=== PATIENT | female | born 1985 | race Caucasian/White ===

== ENCOUNTER 2017-04-28 21:05 | Emergency (ER) | payer OTHER ==
--- NOTE | 2017-04-28 21:10 | UC ---
Back Pain HPI - HPI Summary HPI Summary: 31 year old female presents with complains of left sided upper back spasm. - History of Current Complaint Stated Complaint: BACK PAIN Time Seen by Provider: 04/28/17 21:10 Hx Last Menstrual Period: depo shot - Allergies/Home Medications Allergies/Adverse Reactions: Allergies Allergy/AdvReac Type Severity Reaction Status Date / Time Amoxicillin Allergy Rash Verified 04/28/17 21:17 Meperidine [From Demerol HCl] Allergy Rash And Verified 04/28/17 21:17 Itching Penicillins Allergy Unknown Verified 04/28/17 21:17 Reaction Details Tramadol Allergy Swelling Verified 04/28/17 21:17 Of Face,Lips,& Throat PMH/Surg Hx/FS Hx/Imm Hx Other History Of: Negative For: HIV, Hepatitis B, Hepatitis C, Anticoagulant Therapy - Surgical History Surgical History: Yes Surgery Procedure, Year, and Place: C-Sections, 2003 2007, [place] - Family History Known Family History: Positive: None, Hypertension Negative: Cardiac Disease - Social History Alcohol Use: None Substance Use Type: None Smoking Status (MU): Never Smoked Tobacco - Immunization History Most Recent Influenza Vaccination: Not the 2015/2016 Season Review of Systems Constitutional: Negative Skin: Negative Eyes: Negative ENT: Negative Respiratory: Negative Cardiovascular: Negative Gastrointestinal: Negative Genitourinary: Negative Motor: Negative Neurovascular: Negative Musculoskeletal: Myalgia, Other: - left upper back spasm Neurological: Negative Psychological: Negative All Other Systems Reviewed And Are Negative: Yes Physical Exam Triage Information Reviewed: Yes Eye Exam: Normal ENT Exam: Normal Dental Exam: Normal Neck exam: Normal Neck: Positive: 1 Respiratory Exam: Normal Cardiovascular Exam: Normal Abdominal Exam: Normal Musculoskeletal Exam: Normal Musculoskeletal: Positive: Other: - left upper back spasm Neurological Exam: Normal Psychological Exam: Normal Skin Exam: Normal Back Pain Course/Dx - Differential Dx/Diagnosis Provider Diagnoses: left upper back spasm. scapular dyskinesia Discharge - Discharge Plan Condition: Stable Disposition: HOME Prescriptions: Diclofenac 1% GEL (NF) [Voltaren 1% GEL (NF)] 2 gm TOPICAL BID PRN #1 tube PRN Reason: Spasms - Back Meloxicam [Mobic] 7.5 mg PO BID WITH MEALS #30 tab Methocarbamol TAB* [Robaxin 500 MG TAB*] 500 mg PO TID PRN #30 tab PRN Reason: Spasms - Back Patient Education Materials: Muscle Spasm (ED), Back Pain (ED) Referrals: Jaclyn Bui PA [Primary Care Provider] - If Needed
[2017-04-28 21:17] VITALS: BP 124/80
[2017-04-28] MEDS ORDERED: Naproxen TAB* 250 MG PO ONE (21:31)
== END 2017-04-28 21:39 | disposition home or self-care (01) ==
LOC: UCCORT 21:05
DX: M62.830 Muscle spasm of back (principal); M89.8X1 Other specified disorders of bone, shoulder; Z88.1 Allergy status to other antibiotic agents; Z88.5 Allergy status to narcotic agent; Z88.0 Allergy status to penicillin
CPT/HCPCS: 99212; A9270-GY; G0463

== ENCOUNTER 2017-05-05 09:06 | Emergency (ER) | payer OTHER ==
--- NOTE | 2017-05-05 09:30 | UC ---
Throat Pain/Nasal Maxi HPI - HPI Summary HPI Summary: 31 YEAR OLD FEMALE PRESENTS WITH COMPLAINS OF SORE THROAT. - History of Current Complaint Stated Complaint: SORE THROAT Hx Last Menstrual Period: depo shot - Allergies/Home Medications Allergies/Adverse Reactions: Allergies Allergy/AdvReac Type Severity Reaction Status Date / Time Amoxicillin Allergy Rash Verified 05/05/17 09:40 Meperidine [From Demerol HCl] Allergy Rash And Verified 05/05/17 09:40 Itching Penicillins Allergy Unknown Verified 05/05/17 09:40 Reaction Details Tramadol Allergy Swelling Verified 05/05/17 09:40 Of Face,Lips,& Throat PMH/Surg Hx/FS Hx/Imm Hx Previously Healthy: Yes Other History Of: Negative For: HIV, Hepatitis B, Hepatitis C, Anticoagulant Therapy - Surgical History Surgical History: Yes Surgery Procedure, Year, and Place: C-Sections, 2003 2007, [place] - Family History Known Family History: Positive: None, Hypertension Negative: Cardiac Disease - Social History Alcohol Use: None Substance Use Type: None Smoking Status (MU): Never Smoked Tobacco - Immunization History Most Recent Influenza Vaccination: Not the 2015/2016 Season Review of Systems Constitutional: Negative Skin: Negative Eyes: Negative ENT: Sore Throat, Nasal Discharge, Sinus Congestion Respiratory: Negative Cardiovascular: Negative Gastrointestinal: Negative Genitourinary: Negative Motor: Negative Neurovascular: Negative Musculoskeletal: Negative Neurological: Negative Psychological: Negative All Other Systems Reviewed And Are Negative: Yes Physical Exam Triage Information Reviewed: Yes Eye Exam: Normal ENT: Positive: Pharyngeal erythema, Nasal congestion, Nasal drainage, Tonsillar swelling Dental Exam: Normal Neck exam: Normal Neck: Positive: 1 Respiratory Exam: Normal Cardiovascular Exam: Normal Abdominal Exam: Normal Musculoskeletal Exam: Normal Neurological Exam: Normal Psychological Exam: Normal Skin Exam: Normal Throat Pain/Nasal Course/Dx - Differential Dx/Diagnosis Provider Diagnoses: STREP THROAT. PHARYNGITIS Discharge - Discharge Plan Condition: Stable Disposition: HOME Prescriptions: Azithromyxin JAMIE (NF) [Z-Jamie (Zithromax) 250 mg tabs #6] 2 tab PO .TODAY, THEN 1 DAILY #6 tab Magic M W2 Grayson/Maal/Nyst/Lido* 15 ml SWISH SPIT QID #120 ml Patient Education Materials: Sore Throat in Children (ED) Referrals: Jaclyn Bui PA [Primary Care Provider] - If Needed
[2017-05-05 09:48] VITALS: BP 115/68
== END 2017-05-05 10:14 | disposition home or self-care (01) ==
LOC: UCCORT 09:06
DX: J02.0 Streptococcal pharyngitis (principal); Z88.1 Allergy status to other antibiotic agents; Z88.5 Allergy status to narcotic agent; Z88.0 Allergy status to penicillin
CPT/HCPCS: 87651; 99212; G0463

== ENCOUNTER 2017-05-21 12:50 | Emergency (ER) | payer OTHER ==
--- NOTE | 2017-05-21 13:02 | UC ---
Throat Pain/Nasal Maxi HPI - HPI Summary HPI Summary: 31 YEAR OLD FEMALE PRESENTS WITH SORE THROAT AND HEADACHE. ON A SIDE NOTE SHE WAS EXPOSED TO STREP. - History of Current Complaint Stated Complaint: HEADACHE,THROAT Time Seen by Provider: 05/21/17 13:02 Hx Obtained From: Patient Hx Last Menstrual Period: depo shot Onset/Duration: Sudden Onset Severity: Moderate Pain Scale Used: 0-10 Numeric - 5 Associated Signs & Symptoms: Positive: Dysphagia Related History: Seasonal Allergies - Allergies/Home Medications Allergies/Adverse Reactions: Allergies Allergy/AdvReac Type Severity Reaction Status Date / Time Amoxicillin Allergy Rash Verified 05/21/17 13:01 Meperidine [From Demerol HCl] Allergy Rash And Verified 05/21/17 13:01 Itching Penicillins Allergy Unknown Verified 05/21/17 13:01 Reaction Details Tramadol Allergy Swelling Verified 05/21/17 13:01 Of Face,Lips,& Throat Home Medications: Home Medications Acetaminophen TAB* [Tylenol TAB*] 650 mg PO Q4H PRN 05/21/17 [History Confirmed 05/21/17] PMH/Surg Hx/FS Hx/Imm Hx Previously Healthy: Yes Other History Of: Negative For: HIV, Hepatitis B, Hepatitis C, Anticoagulant Therapy - Surgical History Surgical History: Yes Surgery Procedure, Year, and Place: C-Sections, 2003 2007, [place] - Family History Known Family History: Positive: None, Hypertension Negative: Cardiac Disease - Social History Alcohol Use: None Substance Use Type: None Smoking Status (MU): Never Smoked Tobacco - Immunization History Most Recent Influenza Vaccination: Not the 2015/2016 Season Review of Systems Constitutional: Negative Skin: Negative Eyes: Negative ENT: Sore Throat, Nasal Discharge, Sinus Congestion Respiratory: Negative Cardiovascular: Negative Gastrointestinal: Negative Genitourinary: Negative Motor: Negative Neurovascular: Negative Musculoskeletal: Negative Neurological: Negative Psychological: Negative All Other Systems Reviewed And Are Negative: Yes Physical Exam Triage Information Reviewed: Yes Eye Exam: Normal ENT: Positive: Pharyngeal erythema Dental Exam: Normal Neck exam: Normal Neck: Positive: 1 Respiratory Exam: Normal Cardiovascular Exam: Normal Abdominal Exam: Normal Musculoskeletal Exam: Normal Neurological Exam: Normal Psychological Exam: Normal Skin Exam: Normal Throat Pain/Nasal Course/Dx - Differential Dx/Diagnosis Provider Diagnoses: PHARYNGITIS Discharge - Discharge Plan Condition: Stable Disposition: HOME Prescriptions: Azithromyxin JAMIE (NF) [Z-Jamie (Zithromax) 250 mg tabs #6] 2 tab PO .TODAY, THEN 1 DAILY #6 tab Magic M W2 [place]/Maal/Nyst/Lido* 15 ml SWISH SPIT QID #120 ml Patient Education Materials: Pharyngitis (ED) Referrals: Jaclyn Bui PA [Primary Care Provider] -
[2017-05-21 13:07] VITALS: BP 134/90
== END 2017-05-21 13:33 | disposition home or self-care (01) ==
LOC: UCCORT 12:50
DX: J02.9 Acute pharyngitis, unspecified (principal); R51 Headache; Z88.5 Allergy status to narcotic agent; Z88.0 Allergy status to penicillin
CPT/HCPCS: 87651; 99212; G0463

== ENCOUNTER 2018-04-24 18:05 | Emergency (ER) | payer OTHER ==
[2018-04-24 18:29] VITALS: BP 137/97
--- NOTE | 2018-04-24 18:44 | UC ---
Skin Complaint HPI - HPI Summary HPI Summary: The patient is a 32-year-old female who awoke this morning. Initially the patient described her as being red and swollen around the body. Swelling has decreased. He has moderate burning pain in the region of the bite. She has had no history of any serious skin infections and denies a history of MRSA. - History of Current Complaint Chief Complaint: UCSkin Time Seen by Provider: 04/24/18 18:30 Stated Complaint: SKIN COMPLAINT Hx Obtained From: Patient Hx Last Menstrual Period: DEPO SHOT Onset/Duration: Sudden Onset, Lasting Hours Timing: Constant Onset Severity: Mild Current Severity: Mild Pain Intensity: 4 Pain Scale Used: 0-10 Numeric Location: Discrete Character: Pain Aggravating Factor(s): Nothing Alleviating Factor(s): Nothing Associated Signs & Symptoms: Positive: Tenderness Related History: Insect Bite/Sting - Allergy/Home Medications Allergies/Adverse Reactions: Allergies Allergy/AdvReac Type Severity Reaction Status Date / Time MS Amoxicillin [Amoxicillin] Allergy Rash Verified 05/21/17 13:01 MS Meperidine Allergy Rash And Verified 05/21/17 13:01 [From Demerol HCl] Itching MS Penicillins [Penicillins] Allergy Unknown Verified 05/21/17 13:01 Reaction Details MS Tramadol [Tramadol] Allergy Swelling Verified 05/21/17 13:01 Of Face,Lips,& Throat Review of Systems Constitutional: Fever Skin: Other - bite Eyes: Negative ENT: Negative Respiratory: Negative Cardiovascular: Negative Gastrointestinal: Negative Genitourinary: Negative Motor: Negative Neurovascular: Negative Musculoskeletal: Negative Neurological: Negative Psychological: Negative Is Patient Immunocompromised?: No All Other Systems Reviewed And Are Negative: Yes PMH/Surg Hx/FS Hx/Imm Hx Previously Healthy: Yes - narcolepsy Other History Of: Negative For: HIV, Hepatitis B, Hepatitis C, Anticoagulant Therapy - Surgical History Surgical History: Yes Surgery Procedure, Year, and Place: C-Sections, 2003 2007, [place] - Family History Known Family History: Positive: None, Hypertension Negative: Cardiac Disease - Social History Alcohol Use: None Substance Use Type: None Smoking Status (MU): Never Smoked Tobacco - Immunization History Most Recent Influenza Vaccination: Not the 2015/2016 Season Physical Exam Triage Information Reviewed: Yes Appearance: Well-Appearing, No Pain Distress, Well-Nourished Vital Signs: Initial Vital Signs Temp 98.1 F 04/24/18 18:22 Pulse 97 04/24/18 18:22 Resp 16 04/24/18 18:22 BP 137/97 04/24/18 18:22 Pulse Ox 100 04/24/18 18:22 Vital Signs Reviewed: Yes Eyes: Positive: Conjunctiva Clear ENT: Positive: Hearing grossly normal. Negative: Nasal congestion, Nasal drainage, Trismus, Muffled voice, Hoarse voice Neck: Positive: Supple, Nontender Respiratory: Positive: Lungs clear, Normal breath sounds, No respiratory distress, No accessory muscle use Cardiovascular: Positive: RRR, No Murmur Abdominal Exam: Normal Musculoskeletal: Positive: ROM Intact, No Edema Neurological Exam: Normal Psychological Exam: Normal Skin Exam: Other - bite right shoulder/not indurated/no flutuance Course/Dx - Diagnoses Provider Diagnoses: insect bite right shoulder Discharge - Sign-Out/Discharge Documenting (check all that apply): Patient Departure - Discharge Plan Condition: Stable Disposition: HOME Prescriptions: DOXYcycline CAP(*) [DOXYcycline 100MG CAP(*)] 100 mg PO BID #14 cap Patient Education Materials: Insect Bite or Sting (ED) Referrals: Jazmine Watt MD [Primary Care Provider] - If Needed Additional Instructions: recheck for new or worsening symptoms - Billing Disposition and Condition Condition: STABLE Disposition: Home
== END 2018-04-24 18:43 | disposition home or self-care (01) ==
LOC: UCCORT 18:05
DX: S40.261A Insect bite (nonvenomous) of right shoulder, initial encounter (principal); W57.XXXA Bitten or stung by nonvenomous insect and other nonvenomous arthropods, initial encounter; Y93.9 Activity, unspecified; Y92.9 Unspecified place or not applicable; Z88.5 Allergy status to narcotic agent; Z88.0 Allergy status to penicillin
CPT/HCPCS: 99212; G0463

== ENCOUNTER 2018-09-24 09:18 | Emergency (ER) | payer OTHER ==
[2018-09-24 09:47] VITALS: BP 125/93
--- NOTE | 2018-09-24 09:58 | ED ---
Throat Pain/Nasal Congestion - HPI Summary HPI Summary: 32 yr old female with the complaint of sinus pressure, post nasal drip, sore throat. Onset 4-5 days ago. She had some canker sores in mouth yesterday that have seemed to get better overnight. She has symptoms that are moderate. She felt that she might have a sinus infection. She has bilateral ear ache and pressure since over this past weekend. - History of Current Complaint Chief Complaint: UCRespiratory Time Seen by Provider: 09/24/18 09:49 - Allergies/Home Medications Allergies/Adverse Reactions: Allergies Allergy/AdvReac Type Severity Reaction Status Date / Time amoxicillin Allergy Rash Verified 09/24/18 09:41 meperidine Allergy Itchy Rash Verified 09/24/18 09:41 Penicillins Allergy Unknown Verified 09/24/18 09:41 Reaction Details tramadol Allergy Swelling Verified 09/24/18 09:41 Of Face,Lips,& Throat Home Medications: Home Medications Citalopram TAB* [CeleXA TAB*] 20 mg PO DAILY 09/24/18 [History Confirmed ] Labetalol TAB* [Trandate TAB*] 200 mg PO BID 09/24/18 [History Confirmed ] Levothyroxine TAB* [Synthroid TAB*] 50 mcg PO DAILY 09/24/18 [History Confirmed 09/24/18] Methylphenidate HCl [Methylphenidate HCl ER] 20 mg PO DAILY 09/24/18 [History Confirmed 09/24/18] Xyrem Narcolepsy Medication 3.75 ml PO SEE INSTRUCTIONS 09/24/18 [History] PMH/Surg Hx/FS Hx/Imm Hx Endocrine/Hematology History: Reports: Hx Thyroid Disease - Hypothyroidism Denies: Hx Anticoagulant Therapy, Hx Diabetes Cardiovascular History: Reports: Hx Hypertension Denies: Hx Congestive Heart Failure, Hx Deep Vein Thrombosis, Hx Myocardial Infarction, Hx Pacemaker/ICD Respiratory History: Denies: Hx Asthma, Hx Chronic Obstructive Pulmonary Disease (COPD), Hx Lung Cancer, Hx Pneumonia, Hx Pulmonary Embolism GI History: Denies: Hx Gall Bladder Disease, Hx Gastrointestinal Bleed, Hx Ulcer, Hx Urosepsis History: Denies: Hx Kidney Stones, Hx Renal Disease Neurological History: Reports: Hx Migraine Denies: Hx Dementia, Hx Seizures, Hx Transient Ischemic Attacks (TIA) Psychiatric History: Denies: Hx Anxiety, Hx Depression, Hx Schizophrenia, Hx Bipolar Disorder - Surgical History Surgery Procedure, Year, and Place: C-Sections, 2003 2007, [place] Infectious Disease History: No Infectious Disease History: Denies: Hx Clostridium Difficile, Hx Hepatitis, Hx Human Immunodeficiency Virus (HIV), Hx of Known/Suspected MRSA, Hx Shingles, Hx Tuberculosis, Hx Known/ Suspected VRE, Hx Known/Suspected VRSA, History Other Infectious Disease, Traveled Outside the [place] in Last 30 Days - Family History Known Family History: Positive: None, Hypertension Negative: Cardiac Disease - Social History Alcohol Use: None Substance Use Type: Reports: None Smoking Status (MU): Never Smoked Tobacco Review of Systems Constitutional: Negative Positive: Sore Throat, Ear Ache, Nasal Discharge Positive: Cough All Other Systems Reviewed And Are Negative: Yes Physical Exam Triage Information Reviewed: Yes Vital Signs On Initial Exam: Initial Vitals Temp Pulse Resp BP Pulse Ox 98 F 84 18 125/93 100 09/24/18 09:39 09/24/18 09:39 09/24/18 09:39 09/24/18 09:39 09/24/18 09:39 Vital Signs Reviewed: Yes Appearance: Positive: Well-Appearing, No Pain Distress Skin: Positive: Warm, Skin Color Reflects Adequate Perfusion Head/Face: Positive: Normal Head/Face Inspection Eyes: Positive: EOMI ENT: Positive: Pharyngeal erythema, Nasal congestion, Nasal drainage, TM dull, Sinus tenderness, Other - one small spot of ulceration on the lateral right tongue. Neck: Positive: Nontender Respiratory/Lung Sounds: Positive: Clear to Auscultation, Breath Sounds Present Cardiovascular: Positive: RRR. Negative: Murmur Abdomen Description: Positive: Nontender Musculoskeletal: Positive: Strength/ROM Intact Neurological: Positive: Sensory/Motor Intact, Alert, Oriented to Person Place, Time, CN Intact II-III Psychiatric: Positive: Normal - [place] Coma Scale Best Eye Response: 4 - Spontaneous Best Motor Response: 6 - Obeys Commands Best Verbal Response: 5 - Oriented Coma Scale Total: 15 Diagnostics - Vital Signs Vital Signs Temp Pulse Resp BP Pulse Ox 09/24/18 09:39 98 F 84 18 125/93 100 - Laboratory Lab Statement: Any lab studies that have been ordered have been reviewed, and results considered in the medical decision making process. EENT Course/Dx - Course Course Of Treatment: 32 yr old with sinusitis, and bilateral TM retraction. Plan Rx with Biaxin. - Diagnoses Provider Diagnoses: Sinusitis Discharge - Sign-Out/Discharge Documenting (check all that apply): Patient Departure All imaging exams completed and their final reports reviewed: No Studies - Discharge Plan Condition: Good Disposition: HOME Prescriptions: DOXYcycline CAP(*) [DOXYcycline 100MG CAP(*)] 100 mg PO BID #20 cap Patient Education Materials: Sinusitis (ED) Referrals: Jazmine Watt MD [Primary Care Provider] - 2 Days - Billing Disposition and Condition Condition: GOOD Disposition: Home
== END 2018-09-24 10:04 | disposition home or self-care (01) ==
LOC: UCCORT 09:18
DX: J32.9 Chronic sinusitis, unspecified (principal); Z88.0 Allergy status to penicillin; Z88.5 Allergy status to narcotic agent
CPT/HCPCS: 99212; G0463

== ENCOUNTER 2019-12-03 15:43 | Emergency (ER) | payer OTHER ==
--- OUTSIDE RECORDS SUMMARY | 2019-12-03 16:03 | XMS REPORT | Continuity of Care Document ---
:1985 External Reference #:[id number] Author Name Dez Mitchell MD Address [address] [place] [address] Care Team Providers Name Role Phone Dez Mitchell MD - Family Medicine Care Team Information Facility Administrator [phone] Problems Active Problems Provider Date Hypothyroidism Jazmine Watt MD Onset: 01/01/2018 Narcolepsy Jazmine Watt MD Onset: 01/01/2018 Injury of conjunctiva and corneal abrasion Peyman Goldman MD Onset: 01/11/2018 without foreign body, left eye, initial encounter Activity, other specified Peyman Goldman MD Onset: 01/11/2018 Outerspace sickness Peyman Goldman MD Onset: 01/11/2018 Other external cause status Peyman Goldman MD Onset: 01/11/2018 Encounter for other contraceptive management Nurse Internal Med Onset: 2017 Immunization Nurse Internal Med Onset: 03/07/2018 Essential hypertension Jazmine Watt MD Onset: 07/04/2018 Anxiety state Jazmine Watt MD Onset: 07/04/2018 Social History Type Date Description Comments Sex Unknown Tobacco Use Start: Unknown Never Smoked Cigarettes Smoking Status Reviewed: 11/05/19 Never Smoked Cigarettes ETOH Use Denies alcohol use Tobacco Use Start: Unknown Patient has never smoked Recreational Drug Use Denies Drug Use Exercise Type/Frequency Does not exercise Allergies, Adverse Reactions, Alerts Active Allergies Reaction Severity Comments Date Morphine rash 01/04/2016 Amoxicillin rash 12/31/2015 Penicillin rash 12/31/2015 Tramadol could not swallow-swelling 12/31/2015 Demerol rash 12/31/2015 Penicillins Unknown Reaction Details 09/24/2018 Medications Active Medications SIG Qnty Indications Ordering Date Provider Lidocaine Viscous HCL gargle, hong konger and 100ml K12.0 [facility], spit out of mouth 2-3 MD Dez 0 2% Solution times daily for pain relief. Cetirizine HCL 1 tab by mouth at 30tabs J01.90 Paula, 10mg bedtime as needed MD Dez 0 Tablets Flonase Allergy use 2 sprays in each 15.800ml J30.9 [place], Relief nostril in in the MD Madeilne 9 50mcg/Act morning Suspension Claritin take at night 30caps J30.9 Alysa, 10mg Capsules MD Amy Lucero Ondansetron 1 tab by mouth three 30tabs Ratnasingam, 4mg Tablets times a day as needed MD Madeline 9 Dispers for nausea Labetalol HCL take 1 tablet by 60tabs Alysa, 200mg mouth twice a day MD Jazmine 8 Tablets Sumatriptan Succinate one by mouth at the 60tabs Ratnasingam, first sign of MD Madeline 8 25mg Tablets headache, may repeat dose in 1-2 hours if needed. mdd 2 Adderall 1 tab by mouth bid Unknown 10mg Tablets 0 Xyrem 4.5mg po bid Unknown 500mg/ml Solution 0 Depo-Provera inject 150mg 1ml Ratnasingam, 150mg/ml intramuscularly every MD Madeline 0 Suspension 3 months Methylphenidate HCL 1 daily Culebras, DAWNA Graff MD 0 20mg Tablets ER Celexa 1 by mouth every day 30tabs Ratnasingam, 20mg Tablets MD Madeline 0 Levothyroxine Sodium 1 by mouth every day Unknown 0 75mcg Tablets Medications Administered in Office Medication SIG Qnty Indications Ordering Provider Date Depomedroxyporgesterone 150MG Nurse Internal Med 10/17/2019 Injection Depomedroxyporgesterone 150MG Nurse Internal Med 07/30/2019 Injection Depomedroxyporgesterone 150MG Tammy Marcano, 04/30/2019 Injection MS, [employer], CNM Depomedroxyporgesterone 150MG Nurse Internal Med 02/01/2019 Injection Depomedroxyporgesterone 150MG Nurse Internal Med 10/18/2018 Injection Depomedroxyporgesterone 150MG Nurse Internal Med 07/05/2018 Injection Theraputic Or Diagnostic Injection Nurse Internal Med 12/12/2017 Injection Theraputic Or Diagnostic Injection Jazmine Watt MD 08/18/2017 Injection Depomedroxyporgesterone 150MG Jazmine Watt MD 05/26/2017 Injection Immunizations CPT Code Status Date Vaccine Lot # [id number] Given 07/04/2018 Influenza Virus Vaccine, Quadrivalent, 36 Mos+, [id number] Given 03/07/2018 Tdap injection [id number] Given 10/18/2012 Influenza Vaccine (Fluzone) Age 3 And Older U-Td Given 04/09/2002 Td(Adult),Unspecified Vital Signs Date Vital Result Comment 11/05/2019 9:47am BP Systolic 149 mmHg BP Diastolic 96 mmHg Body Temperature 97.9 F Heart Rate 112 /min Respiratory Rate 20 /min Height 63 inches 5'3" Weight 177.00 lb BMI (Body Mass Index) 31.4 kg/m2 BSA (Body Surface Area) 1.84 m2 [place] body weight in kilograms 52 kg O2 % BldC Oximetry 100 % 04/30/2019 8:47am BP Systolic Sitting Left Arm 118 mmHg BP Diastolic Sitting Left Arm 84 mmHg Body Temperature 97.2 F Heart Rate 75 /min Respiratory Rate 18 /min Height 63 inches 5'3" Weight 176.00 lb BMI (Body Mass Index) 31.2 kg/m2 BSA (Body Surface Area) 1.83 m2 [place] body weight in kilograms 52 kg O2 % BldC Oximetry 99 % Ra Results Description No Information Available Procedures Date Code Description Status 10/17/2019 37370 Theraputic Or Diagnostic Injection Completed 07/30/2019 48878 Theraputic Or Diagnostic Injection Completed Medical Devices Description No Information Available Encounters Type Date Location Provider Dx Diagnosis Office Visit 11/05/2019 Primary Care Dez Mitchell, J01.90 Acute sinusitis, 9:40a Office MD unspecified K12.0 Recurrent oral aphthae Assessments Date Code Description Provider 11/05/2019 J01.90 Acute sinusitis, unspecified Dez Mitchell MD 11/05/2019 K12.0 Recurrent oral aphthae Dez Mitchell MD 10/17/2019 Z30.8 Encounter for other contraceptive Madeline Mckeon MD management 10/17/2019 Z30.8 Encounter for other contraceptive Nurse Internal Med management 07/30/2019 Z30.8 Encounter for other contraceptive Judy Batista PA management 07/30/2019 Z30.8 Encounter for other contraceptive Nurse Internal Med management Plan of Treatment 11/05/2019 - Dez Mitchell MDJ01.90 Acute sinusitis, unspecifiedNew Medication :Cetirizine HCL 10 mg - 1 tab by mouth at bedtime as neededComments:Discussed with patient that her symptoms are secondary to viral infection.Zyrtec as prescribed. Patient does have Flonase at home. I recommended use of this twice a day into the sinuses. She can also use an [place] pot.Hydration encouraged.Tylenol or ibuprofen for fever or pain.K12.0 Recurrent oral aphthaeNew Medication:Lidocaine Viscous HCL 2 % - gargle, hong konger and spit out of mouth 2-3 times daily for pain relief.Comments:Lidocaine mouthwash was given for pain relief. Functional Status Description No Information Available Mental Status Description No Information Available Referrals Description No Information Available
[2019-12-03 16:06] VITALS: BP 142/83
--- NOTE | 2019-12-03 16:09 | UC ---
Respiratory Complaint HPI - HPI Summary HPI Summary: 33-year-old female who had the stomach bug last week for 3 days with quite a bit of vomiting. The vomiting resolved approximately one week ago however she started having some right mid anterior rib pain following that illness. She denies any shortness of breath or difficulty breathing however states she can feel the pain if she takes a deep breath. She is a nonsmoker. She can replicate the pain with movement. - History of Current Complaint Chief Complaint: UCGeneralIllness Stated Complaint: COUGH,RT SIDE RIB PAIN Time Seen by Provider: 12/03/19 15:59 Hx Obtained From: Patient Hx Last Menstrual Period: On DEPO INJ ?: No Onset/Duration: Gradual Onset Timing: Intermittent Episodes Severity Initially: Mild Severity Currently: Mild Pain Intensity: 2 Aggravating Factors: Deep Breaths, Other - Patient is able to replicate the pain with movement. Alleviating Factors: Nothing Associated Signs And Symptoms: Positive: Negative - Allergies/Home Medications Allergies/Adverse Reactions: Allergies Allergy/AdvReac Type Severity Reaction Status Date / Time amoxicillin Allergy Rash Verified 12/03/19 16:02 meperidine Allergy Itchy Rash Verified 12/03/19 16:02 Penicillins Allergy Unknown Verified 12/03/19 16:02 Reaction Details tramadol Allergy Swelling Verified 12/03/19 16:02 Of Face,Lips,& Throat Home Medications: Home Medications Amphetamine MIXED SALT TAB* [Adderall TAB*] 20 mg PO DAILY 07/02/15 [History Confirmed 12/03/19] medroxyPROGESTERone ACETATE* [DEPO-Provera*] 150 mg IM SEE INSTRUCTIONS [History Confirmed 12/03/19] Citalopram TAB* [CeleXA TAB*] 20 mg PO DAILY 09/24/18 [History Confirmed ] Labetalol TAB* [Trandate TAB*] 200 mg PO BID 09/24/18 [History Confirmed ] Levothyroxine TAB* [Synthroid TAB*] 50 mcg PO DAILY 09/24/18 [History Confirmed 12/03/19] Methylphenidate HCl [Methylphenidate HCl ER] 20 mg PO DAILY 09/24/18 [History Confirmed 12/03/19] Cetirizine* [ZyrTEC 10 MG TAB*] 1 tab DAILY 12/03/19 [History Confirmed 12/03/19 ] PMH/Surg Hx/FS Hx/Imm Hx Previously Healthy: Yes Endocrine History: Thyroid Disease Cardiovascular History: Hypertension Psychological History: Anxiety Other History Of: Negative For: HIV, Hepatitis B, Hepatitis C, Anticoagulant Therapy - Surgical History Surgical History: Yes Surgery Procedure, Year, and Place: C-[facility]ctions, 2003 2007, [place] - Family History Known Family History: Positive: None, Hypertension Negative: Cardiac Disease - Social History Lives: With Family Alcohol Use: Occasionally Substance Use Type: None Smoking Status (MU): Never Smoked Tobacco - Immunization History Most Recent Influenza Vaccination: Not the Season Review of Systems All Other Systems Reviewed And Are Negative: Yes Respiratory: Positive: Other - Patient states with a deep breath she can feel the right lower anterior rib pain. Is Patient Immunocompromised?: No Physical Exam Triage Information Reviewed: Yes Appearance: Well-Appearing, No Pain Distress, Well-Nourished Vital Signs: Initial Vital Signs Temp 98 F 12/03/19 16:01 Pulse 83 12/03/19 16:01 Resp 16 12/03/19 16:01 BP 142/83 12/03/19 16:01 Pulse Ox 100 12/03/19 16:01 Vital Signs Reviewed: Yes Eyes: Positive: Conjunctiva Clear ENT: Positive: Hearing grossly normal, Pharynx normal, TMs normal, Uvula midline Neck: Positive: Supple, Nontender, No Lymphadenopathy Respiratory: Positive: Lungs clear, Normal breath sounds, No respiratory distress, No accessory muscle use, Other: - Pain on palpation right mid anterior ribs. No bruising, erythema, deformity or swelling is noted. No crepitus. Good air movement throughout all lung estevez. Cardiovascular: Positive: RRR, No Murmur, Pulses Normal, Brisk Capillary Refill Musculoskeletal Exam: Normal Neurological Exam: Normal Psychological Exam: Normal Skin Exam: Normal Respiratory Course/Dx - Course Course Of Treatment: Chest x-ray:REPORT: Clear lungs and pleural spaces. Negative for pneumothorax. The heart, pulmonary vasculature, and mediastinal contours are unremarkable. Negative for free air beneath the diaphragm. RIGHT ninth rib fracture laterally with callus formation consistent with healing response or old fracture. No acute rib fracture evident. IMPRESSION: #. No acute pulmonary or cardiac process evident. Negative for pneumothorax. #. RIGHT ninth rib fracture laterally with callus formation consistent with healing response or old fracture. No acute rib fracture evident. Patient is comfortable here. I believe this is more of a muscle sprain however she does have a past fracture of the ninth rib that is healing. She is to apply heat to the area take Tylenol and ibuprofen for pain and follow-up with her primary care provider as needed. - Differential Dx/Diagnosis Provider Diagnosis: Muscle strain of chest wall Discharge ED - Sign-Out/Discharge Documenting (check all that apply): Patient Departure All imaging exams completed and their final reports reviewed: Yes - Discharge Plan Condition: Good Disposition: HOME Patient Education Materials: Muscle Strain (DC) Referrals: Dez Mitchell MD [Primary Care Provider] - Additional Instructions: Tylenol every 4 hours and may alternate with ibuprofen every 8 hours for pain. Apply heat to the sore area. Follow-up with your primary care provider if no improvement in approximately 4-5 days. Movements that cause pain. - Billing Disposition and Condition Condition: GOOD Disposition: Home
== END 2019-12-03 17:17 | disposition home or self-care (01) ==
LOC: UCCORT 15:43
DX: S29.011A Strain of muscle and tendon of front wall of thorax, initial encounter (principal); I10 Essential (primary) hypertension; E07.9 Disorder of thyroid, unspecified; F41.9 Anxiety disorder, unspecified; Z88.0 Allergy status to penicillin; Z88.5 Allergy status to narcotic agent; X58.XXXA Exposure to other specified factors, initial encounter; Y92.9 Unspecified place or not applicable; Z79.890 Hormone replacement therapy; Z79.899 Other long term (current) drug therapy
CPT/HCPCS: 71046; 99211; G0463